=== PATIENT | male | born 1975 | race Hispanic/Latino ===

== ENCOUNTER 2019-07-26 21:19 | Emergency (ER) | payer BC ==
[~2019-07-26] VITALS: Ht 170.2 cm; Wt 88.5 kg
--- NOTE | 2019-07-26 21:27 | Emergency Department Note ---
History of Present Illnes History of Present Illness History of Present Illness This is a 44 year old male presents to the ED for r distal forearm pain s/p trauma/injury. Seen at urgent care prior to arrival and was diagnosed with a wrist fx. 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 Any updates have been documented here. Review of Systems Review of Systems Constitutional: Reports no symptoms EENTM: Reports no symptoms Cardiovascular: Reports no symptoms Respiratory: Reports no symptoms Gastrointestinal: Reports no symptoms Genitourinary: Reports no symptoms Musculoskeletal: Reports joint pain Integumentary: Reports no symptoms Neurological: Reports no symptoms Psychological: Reports no symptoms Endocrine: Reports no symptoms Hematological/Lymphatic: Reports no symptoms Review of other systems All other systems reviewed and negative. Physical Exam Related Data Allergies: Coded Allergies: No Known Allergies (Unverified , 07/26/19) Triage Vital Signs Vital Signs Date Time Temp Pulse Resp B/P (MAP) Pulse Ox O2 Delivery O2 Flow Rate FiO2 07/26/19 22:09 98.8 91 20 150/86 98 Vital signs reviewed: Yes Physical Exam CONSTITUTIONAL Constitutional: Reports well-developed, Reports well-nourished HENT HENT: Reports normocephalic, Reports atraumatic, Reports oropharynx clear/moist, Reports nose normal HENT L/R: Reports left ext ear normal, Reports right ext ear normal EYES Eyes: Reports PERRL, Reports conjunctivae normal NECK Neck: Reports ROM normal PULMONARY Pulmonary: Reports effort normal, Reports breath sounds normal CARDIOVASCULAR Cardiovascular: Reports regular rhythm, Reports heart sounds normal, Reports capillary refill normal, Reports normal rate GASTROINTESTINAL Abdominal: Reports soft, Reports nontender, Reports bowel sounds normal GENITOURINARY Genitourinary: Reports exam deferred SKIN Skin: Reports warm, Reports dry MUSCULOSKELETAL Musculoskeletal: Reports ROM normal, Reports other (R forearm in splint . Capillary refill 2 seconds. ) NEUROLOGICAL Neurological: Reports alert, Reports oriented x 3, Reports no gross motor or sensory deficits PSYCHOLOGICAL Psychological: Reports mood/affect normal, Reports judgement normal Results Imaging Imaging results reviewed: Yes Impressions Imaging from OSH reviewed along with report. Without the benefits of radiology at [facility], patient with intra-articular distal radial fx with minimal displacement Assessment & Plan Medical Decision Making MDM Patient by Urgent to the ED for possible reduction of fracture. imaging not repeated but reviewed by me without the benefits of radiology the xray showed patient with intra-articular distal radial fx with minimal displacement. No indication for immediate reduction; fx well aligned. Case d/w orthopedic Dr Alivia Hillman who agreed to see patient as an outpatient. Rx Tylenol #3. Assessment & Plan Final Impression: (1) Distal radius fracture Depart Disposition: HOME, SELF-CARE AYAD TAVARES DO Jul 26, 2019 21:27
== END 2019-07-26 22:23 | disposition home or self-care (01) ==
LOC: ER 21:19
DX: M79.631 Pain in right forearm (principal)
CPT/HCPCS: 99282

== ENCOUNTER → 2024-01-28 | Day surgery (SDC) | payer BC ==
[2024-01-25 15:59] LABS: ANION GAP 13.8 mmol/L (8-16); CALCIUM 9.3 mg/dL (8.4-10.2); CREATININE, SERUM 1.14 mg/dL (0.72-1.25); POTASSIUM 3.8 mmol/L (3.5-5.1)
[2024-01-25 17:06] LABS: BASOPHILS % 0.7 % (0.0-1.0); EOSINOPHILS # (AUTO) 0.3 (0.0-0.4); HEMATOCRIT 45.6 % (38.2-49.6); HEMOGLOBIN 14.9 g/dL (14.0-18.0); MEAN CORPUSCULAR HEMOGLOBIN 31.6 pg (28-32); MEAN CORPUSCULAR HGB CONC 32.7 g/dL (31-35); MEAN CORPUSCULAR VOLUME 96.8 fL (81-99); MONOCYTES # (AUTO) 0.5 (0.2-0.8); MONOCYTES % 8.5 % (4.4-11.3); NEUTROPHILS # (AUTO) 3.2 (2.1-6.9); NEUTROPHILS % 52.6 % (38.7-80.0); PLATELET COUNT 286 x10e3/uL (140-360); RED BLOOD COUNT 4.71 x10e6/uL (4.3-5.7); RED CELL DISTRIBUTION WIDTH 12.6 % (11.7-14.4)
[~2024-01-28] MED LIST: ACETAMINOPHEN 1000 MG/100 ML 100 ML IV ONE; DEXAMETHASONE SOD PHOS INJ 4 MG/ML SDV ONE; ESMOLOL HCL 100MG/10ML 10 MG/ML VIAL ONE; FENTANYL CITRATE/PF 100MCG/2 ML INJ ONE; GLYCOPYRROLATE INJ 0.2 MG/ML VIAL ONE; HYDROCODONE/APAP 7.5MG-325MG 1 EA TAB ONE; NEOSTIGMINE 1 MG/ML 10ML VIAL ONE; ONDANSETRON HCL INJ 2MG/ML 2ML 2 MG/ML VIAL ONE; PROPOFOL IV EMULSION 10 MG/ML 20 ML VIAL ONE; ROCURONIUM BROMIDE 1 ML IV ONE
[2024-01-28] MEDS: LACTATED RINGER'S 1,000 ML ONE (09:08)
[2024-01-28] MEDS: FENTANYL CITRATE/PF 100MCG/2 ML INJ ONE (13:00)
[2024-01-28 13:15] VITALS: TEMP 97.2
[2024-01-28 13:40] VITALS: BP 136/90; PULSE 62; RESP 18; O2SAT 98
[2024-01-28] MEDS: HYDROCODONE/APAP 7.5MG-325MG 1 EA TAB PO ONE (14:00)
== END | disposition home or self-care (01) ==
LOC: OR 08:27 → MERGE 10:30
PROVIDERS: ATTEND Surgery
DX: K43.6 Other and unspecified ventral hernia with obstruction, without gangrene (principal); K42.9 Umbilical hernia without obstruction or gangrene; Z01.810 Encounter for preprocedural cardiovascular examination; Z01.812 Encounter for preprocedural laboratory examination
CPT/HCPCS: 36415; 49594; 80048; 85025; 88302; 93005; C1781; J0131; J1100; J2405; J2704; J2710; J3010; J7121